=== PATIENT | female | born 1945 | race Caucasian/White ===

== ENCOUNTER 2021-09-25 11:57 | Emergency (ER) | payer MEDICARE, OTHER ==
[~2021-09-25 11:57] MED LIST: PREMARIN0.625 MG PO; SYNTHROID75 MCG PO
[2021-09-25] MEDS ORDERED: NORCO 5-325 TA1 EACH PO (13:14)
== END 2021-09-25 13:20 | disposition home or self-care (01) ==
LOC: FER 11:57
DX: S52.501A Unspecified fracture of the lower end of right radius, initial encounter for closed fracture (principal); E03.9 Hypothyroidism, unspecified; Z79.890 Hormone replacement therapy; Z88.0 Allergy status to penicillin; Z88.1 Allergy status to other antibiotic agents; W01.0XXA Fall on same level from slipping, tripping and stumbling without subsequent striking against object, initial encounter; Y92.009 Unspecified place in unspecified non-institutional (private) residence as the place of occurrence of the external cause
CPT/HCPCS: 73110